=== PATIENT | female | born 1930 | race Caucasian/White ===

== ENCOUNTER → 2016-10-12 | Outpatient (CLI) | payer MEDICARE, OTHER ==
[~2016-10-12] MED LIST: ACETAMINOPHEN PO; ADVIL COLD & SI1 TA1 PO; AMIODARONE PO; ASPIRIN PO; BACTRIM DS TABL1 TAB PO; CIPRO PO; CRESTOR PO; LISINOPRIL PO; LUMIGAN OP; ZESTORETIC 20/21 TAB PO
[2016-10-12 13:56] LABS: POC - CREATININE 1.29 mg/dL (0.44-1.03)
== END | disposition home or self-care (01) ==
LOC: CCAT 07:06
PROVIDERS: Internal Medicine Hematology
DX: E83.119 Hemochromatosis, unspecified (principal)
CPT/HCPCS: 82565